=== PATIENT | female | born 1980 | race Caucasian/White ===

== ENCOUNTER 2018-08-14 10:24 | Outpatient (CLI) | payer BC ==
[2018-08-14 18:00] LABS: BASOPHILS % (AUTO) 0.6 %; EOSINOPHILS # (AUTO) 0.2 10^3/uL (0.0-0.7); EOSINOPHILS % (AUTO) 4.4 %; HGB - HEMOGLOBIN 13.2 g/dL (12.0-16.0); LYMPHOCYTES # (AUTO) 1.3 10^3/uL (1.5-3.5); LYMPHOCYTES % (AUTO) 24.2 %; MEAN CORPUSCULAR HEMOGLOBIN 28.9 pg (27.0-31.0); MEAN CORPUSCULAR HGB CONC 33.4 g/dL (32.0-36.0); MEAN CORPUSCULAR VOLUME 86.4 fL (81.0-99.0); MEAN PLATELET VOLUME 9.5 fL (7.9-10.8); MONOCYTES # (AUTO) 0.4 10^3/uL (0.0-1.0); MONOCYTES % (AUTO) 7.4 %; NEUTROPHILS # (AUTO) 3.3 10^3/uL (1.5-6.6); NEUTROPHILS % (AUTO) 63.4 %; PLT - PLATELET COUNT 279 10^3/uL (130-450); RED BLOOD COUNT 4.59 10^6/uL (4.20-5.40); RED CELL DISTRIBUTION WIDTH 13.4 % (12.0-15.0); WHITE BLOOD COUNT 5.2 x10^3/uL (4.8-10.8)
[2018-08-14 18:28] LABS: ALBUMIN 4.3 g/dL (3.2-5.5); ALBUMIN/GLOBULIN RATIO 1.4 (1.0-2.2); BILIRUBIN,TOTAL 0.6 mg/dL (0.2-1.0); CALCIUM 9.1 mg/dL (8.5-10.3); CREATININE 0.6 mg/dL (0.4-1.0); TOTAL PROTEIN 7.3 g/dL (6.7-8.2)
[2018-08-14 18:42] LABS: T4 (THYROXINE) 7.39 ug/dL (6.09-12.23)
[2018-08-14 18:45] LABS: THYROID STIMULATING HORMONE 0.17 uIU/mL (0.34-5.60)
[2018-08-14 18:48] LABS: FREE T4 (FREE THYROXINE) 1.15 ng/dL (0.58-1.64)
[2018-08-14 18:51] LABS: FERRITIN 9.3 ng/mL (11.0-306.8)
== END 2018-08-14 10:25 | disposition home or self-care (01) ==
LOC: LAB.F 10:24
PROVIDERS: ATTEND Nurse Practitioner Family
DX: Z00.00 Encounter for general adult medical examination without abnormal findings (principal); E55.9 Vitamin D deficiency, unspecified; E03.2 Hypothyroidism due to medicaments and other exogenous substances; E78.5 Hyperlipidemia, unspecified
CPT/HCPCS: 36415; 80053; 82306; 82728; 84436; 84439; 84443; 84481; 85025; 86376; 86800

== ENCOUNTER 2020-02-11 15:00 | Outpatient (CLI) | payer BC ==
[2020-02-11 17:26] LABS: MUDS CUTOFF CONCENTRATIONS CUTOFF CONC BELOW:
[2020-02-11 17:35] LABS: BILIRUBIN,URINE NEGATIVE (NEGATIVE); GLUCOSE, URINE (UA) NEGATIVE (NEGATIVE); KETONES,URINE (UA) NEGATIVE (NEGATIVE); LEUKOCYTE ESTERASE, URINE TRACE (NEGATIVE); NITRITE,URINE NEGATIVE (NEGATIVE); OCCULT BLOOD,URINE NEGATIVE (NEGATIVE); PH,URINE 7.5 PH (5.0-7.5); PROTEIN,URINE NEGATIVE (NEGATIVE); UROBILINOGEN,URINE 0.2 (NORMAL) E.U./dL (NORMAL)
[2020-02-11 17:46] LABS: CLARITY,URINE CLEAR (CLEAR)
[2020-02-11 17:48] LABS: AMPHETAMINE SCREEN,URINE NEGATIVE (NEGATIVE); BENZODIAZEPINES SCREEN, URINE NEGATIVE (NEGATIVE); COCAINE SCREEN URINE NEGATIVE (NEGATIVE); METHADONE SCREEN, URINE NEGATIVE (NEGATIVE); METHAMPHETAMINES SCREEN, URINE NEGATIVE (NEGATIVE); OPIATE SCREEN, URINE NEGATIVE (NEGATIVE); OXYCODONE SCREEN, URINE NEGATIVE (NEGATIVE); PROPOXYPHENE SCREEN, URINE NEGATIVE (NEGATIVE); TRICYCLIC ANTIDEPRESSANT,URINE NEGATIVE (NEGATIVE)
[2020-02-11 17:53] LABS: BACTERIA,URINE Many /HPF (None Seen); RBC,URINE 0-5 /HPF (0-5); SQUAMOUS EPITHELIAL CELL,UR FEW Squamous (<= Few)
== END 2020-02-11 23:59 | disposition home or self-care (01) ==
LOC: LAB.R 15:00
PROVIDERS: ATTEND Nurse Practitioner Obstetrics & Gynecology
DX: Z32.01 Encounter for pregnancy test, result positive (principal)
CPT/HCPCS: 80306; 81001; 87086

== ENCOUNTER 2020-02-20 14:43 | Outpatient (CLI) | payer BC ==
--- NOTE | 2020-02-20 16:04 | Ultrasound Report ---
PROCEDURE: OB First Trimester INDICATIONS: TEST POSITIVE, HX OF OUTSIDE/PRIOR DATING DATA: Last menstrual period (LMP): Not known. LMP-based estimated date of delivery (DEBRA): Not known. First dating scan (date and location): 02/20/2020. Estimated date of delivery (DEBRA) from first dating scan: 10/14/2020. TECHNIQUE: Real-time scanning was performed of the fetus and maternal pelvic organs, with image documentation. COMPARISON: None available from this FINDINGS: Embryo: There is an intrauterine gestational sac seen, with a pole present, which measures 0.5 cm, which corresponds to an estimated gestational age of 6 weeks 1 day. cardiac activity is se en, with a measured heart rate of 124 bpm. Mild perigestational/subchorionic hemorrhage can be seen superior to the gestational sac measuring 7 x 8 x 11 mm, with an additional area of subchorionic hem orrhage seen inferior to the gestational sac measuring 19 x 9 x 23 mm. Measurement variability in dating: +/- 4 weeks by LMP, +/- 7 days by mean sac diameter (use before 6 weeks gestation if crown-rump length not able to be measured), +/- 5 days by crown-rump length (6-12 weeks gestation). Maternal organs: Ovaries are unremarkable, with a presumed left ovarian corpus luteum seen. A small er free fluid can be seen within the right adnexal region. Limited images through the kidneys demonst rate no hydronephrosis. IMPRESSION: Single live intrauterine . The estimated gestational age is 6 weeks 1 day, which corresponds to an ultrasound estimated date of delivery of 10/14/2020. 2 areas of subchorionic hemorrhage are seen. Close clinical follow-up with serial beta hCG measuremen ts are recommended, as clinically appropriate. Presumed left ovarian corpus luteum seen. Reviewed by: Chan Reeves MD on 02/20/2020 3:02 PM MARIANO Approved by: Chan Reeves MD on 02/20/2020 3:02 PM MARIANO Station ID: [id number]
== END 2020-02-20 14:44 | disposition home or self-care (01) ==
LOC: DI 14:43
PROVIDERS: ATTEND Nurse Practitioner Obstetrics & Gynecology
DX: O46.8X1 Other antepartum hemorrhage, first trimester (principal); Z3A.01 Less than 8 weeks gestation of pregnancy
CPT/HCPCS: 76801

== ENCOUNTER 2020-02-22 09:53 | Outpatient (CLI) | payer BC ==
[2020-02-22 10:04] LABS: BASOPHILS % (AUTO) 0.3 %; EOSINOPHILS # (AUTO) 0.1 10^3/uL (0.0-0.7); EOSINOPHILS % (AUTO) 2.3 %; HGB - HEMOGLOBIN 13.4 g/dL (12.0-16.0); LYMPHOCYTES # (AUTO) 1.2 10^3/uL (1.5-3.5); LYMPHOCYTES % (AUTO) 19.7 %; MEAN CORPUSCULAR HEMOGLOBIN 29.6 pg (27.0-31.0); MEAN CORPUSCULAR HGB CONC 34.4 g/dL (32.0-36.0); MEAN CORPUSCULAR VOLUME 86.1 fL (81.0-99.0); MEAN PLATELET VOLUME 10.2 fL (7.9-10.8); MONOCYTES # (AUTO) 0.3 10^3/uL (0.0-1.0); MONOCYTES % (AUTO) 5.5 %; NEUTROPHILS # (AUTO) 4.5 10^3/uL (1.5-6.6); NEUTROPHILS % (AUTO) 71.7 %; PLT - PLATELET COUNT 258 10^3/uL (130-450); RED BLOOD COUNT 4.52 10^6/uL (4.20-5.40); RED CELL DISTRIBUTION WIDTH 12.4 % (12.0-15.0); WHITE BLOOD COUNT 6.2 x10^3/uL (4.8-10.8)
[2020-02-22 22:09] LABS: TRICHOMONAS VAGINALIS DNA NEGATIVE (NEGATIVE)
[2020-02-23 12:16] LABS: HIV AG/AB 4TH GEN NON-REACTIVE (NON-REACTIVE)
[2020-02-23 12:45] LABS: HEPATITIS C ANTIBODY NON-REACTIVE (NON-REACTIVE)
[2020-02-23 12:46] LABS: HEPATITIS B SURFACE ANTIGEN NON-REACTIVE (NON-REACTIVE)
== END 2020-02-22 09:54 | disposition home or self-care (01) ==
LOC: LAB 09:53
PROVIDERS: ATTEND Obstetrics & Gynecology
DX: Z36.89 Encounter for other specified antenatal screening (principal); O99.280 Endocrine, nutritional and metabolic diseases complicating pregnancy, unspecified trimester; E03.9 Hypothyroidism, unspecified; Z3A.00 Weeks of gestation of pregnancy not specified
CPT/HCPCS: 36415; 81599; 84443; 85025; 86592; 86762; 86787; 86803; 86850; 86900; 86901; 87340; 87389; 87491; 87591; 87661

== ENCOUNTER 2020-05-13 14:31 | Outpatient (CLI) | payer BC ==
[2020-05-13 19:40] LABS: FREE T4 (FREE THYROXINE) 0.87 ng/dL (0.58-1.64)
--- OUTSIDE RECORDS SUMMARY | 2020-05-17 01:52 | EXTERNAL MEDICAL SUMMARY RPT | Continuity of Care Document ---
:1980 Demographics Phone Unavailable Preferred Language Taiwanese Marital Status Unknown Sabianist Affiliation Unknown Race Unknown Ethnic Group Unknown Author Organization [place] Address [address] [phone] Phone Care Team Providers Name Role Phone Nurse Unavailable Unavailable Referrals Unavailable Unavailable DO Unavailable Unavailable Navarro Unavailable Unavailable Unavailable Unavailable Problems date description facility 2018-08-14 10:24 HYPOTHYROIDISM DUE TO MEDS AND [facility] OTH EXOGENOUS SUBSTANCES 2018-08-14 10:24 VITAMIN D DEFICIENCY, [facility] UNSPECIFIED 2018-08-14 10:24 HYPERLIPIDEMIA, UNSPECIFIED [facility] 2018-08-14 10:24 ENCNTR FOR GENERAL ADULT [facility] MEDICAL EXAM W/O ABNORMAL FINDINGS 2020-02-11 00:00 ENCOUNTER FOR TEST, [facility] RESULT POSITIVE 2020-02-11 15:00 ENCOUNTER FOR TEST, [facility] RESULT POSITIVE 2020-02-20 14:43 OTHER ANTEPARTUM HEMORRHAGE, [facility] FIRST TRIMESTER 2020-02-20 14:43 ENCOUNTER FOR TEST, [facility] RESULT POSITIVE 2020-02-20 14:43 LESS THAN 8 WEEKS GESTATION OF [facility] 2020-02-20 14:43 PERSONAL HISTORY OF COMP OF [facility] PREG, CHLDBRTH AND THE PUERP 2020-02-20 14:45 ENCOUNTER FOR TEST, [facility] RESULT POSITIVE 2020-02-20 14:45 PERSONAL HISTORY OF COMP OF [facility] PREG, CHLDBRTH AND THE PUERP 2020-02-22 00:00:00 TSH WITH REFLEX [facility] FT4 [facility] RHC 2020-02-22 00:00:00 Elderly multigravida, with [facility] C[facility] current , delivered, RHC with or without mention of antepartum condition 2020-02-22 00:00:00 [facility], unspecified R[facility] trimester 2020-02-22 00:00:00 Encounter for other specified [facility] screening RHC 2020-02-22 00:00:00 Personal history of malignant [facility] neoplasm of thyroid RHC 2020-02-22 00:00:00 [facility] 2020-02-22 00:00:00 [facility] 2020-02-22 00:00:00 Tobacco smoking status [facility] 2020-02-22 00:00:00 CHLAM, NEISSERIA, TRICH DNA [facility] 2020-02-22 00:00:00 Screening examination for [facility] venereal disease RHC 2020-02-22 00:00:00 [facility] 2020-02-22 00:00:00 screening [facility] CPV RHC 2020-02-22 00:00:00 [facility]ravida of advanced [facility] maternal age RHC 2020-02-22 00:00:00 [facility] 2020-02-22 00:00:00 Encounter for other specified [facility] screening of mother RHC 2020-02-22 00:00:00 Encounter for screening for [facility] infections with a predominantly RHC sexual mode of transmission 2020-02-22 00:00:00 Encounter for supervision of [facility] other normal , RHC unspecified trimester 2020-02-22 00:00:00 [facility] 2020-02-22 00:00:00 Alcohol use [facility] C[facility] RHC 2020-02-22 00:00:00 [facility] 2020-02-22 00:00:00 Supervision of other normal [facility] RHC 2020-02-22 00:00:00 PROFILE [facility] n[facility] CPV RHC 2020-02-22 00:00:00 Varicella Zoster Virus (VZV) [facility] CPV Antibody, IgG RHC 2020-02-22 00:00:[address] [facility] CPV RHC 2020-02-22 00:00:00 Venereal disease screening [facility] CPV RHC 2020-02-22 00:00:00 Exercise [facility] CPV RHC 2020-02-22 00:00:00 History of malignant neoplasm [facility] CPV of thyroid RH 2020-02-22 09:53 HYPOTHYROIDISM, UNSPECIFIED [facility] 2020-02-22 09:53 ENDO, NUTRITIONAL AND METAB [facility] DISEASES COMP PREG, UNSP TRI 2020-02-22 09:53 ENCOUNTER FOR OTHER SPECIFIED [facility] SCREENING 2020-02-22 09:53 WEEKS OF GESTATION OF [facility] NOT SPECIFIED 2020-03-21 00:00:00 Health-related behavior [facility] 2020-03-21 00:00:00 Tobacco use and exposure [facility] CPV RHC 2020-03-21 00:00:00 Exercise [facility] CPV RHC 2020-03-21 00:00:00 Alcohol use [facility] CPV RHC 2020-03-21 00:00:00 [facility] 2020-03-21 00:00:00 Tobacco smoking status NHIS [facility] 2020-03-21 00:00:00 Total score? [facility] 2020-04-20 00:00:00 TSH w/reflex [facility] RHC 2020-04-20 00:00:00 MSAFP [facility] RHC 2020-04-20 00:00:00 Tobacco [facility] exposure [facility] 2020-04-20 00:00:00 Health-related behavior [facility] 2020-04-20 00:00:00 Exercise [facility] 2020-04-20 00:00:00 Never smoker [facility] 2020-04-20 00:00:00 Alcohol use [facility] 2020-04-20 00:00:00 Tobacco smoking status CAIS [facility] 2020-04-20 00:00:00 Total score? [facility] 2020-05-13 14:31 HYPOTHYROIDISM, UNSPECIFIED [facility] 2020-05-13 14:31 [facility] M[facility]IDA, UNSPECIFIED TRIMESTER 2020-05-16 00:00:00 TSH WITH REFLEX TO FT4 [facility] RHC Procedures date description facility 2020-02-22 00:00:00 TSH WITH REFLEX TO FT4 [facility] RHC date description facility 2020-02-22 00:00:00 Hep C AB with Reflex [facility] RHC date description facility 2020-02-22 00:00:00 CHLAM, NEISSERIA, TRICH DNA [facility] R[facility] date description facility 2020-02-22 00:00:00 [id number] - SUBSEQUENT [facility] VISIT RHC date description facility 2020-02-22 00:00:[facility] date description facility 2020-02-22 00:00:00 Var[facility]ella [facility]V) [facility] Antibody, IgG RHC date description facility 2020-02-22 00:00:00 [facility] date description facility 2020-02-22 00:00:00 [id number] [facility] R[facility] date description facility 2020-02-22 00:00:[facility] date description facility 2020-02-22 00:00:00 [facility] FT4 [facility] date description facility 2020-02-22 00:00:00 Hep [facility] date description facility 2020-02-22 00:00:00 CHLAM, NEISSERIA, TRICH DNA [facility] R[facility] date description facility 2020-02-22 00:00:00 [id number] - SUBSEQUENT [facility] VISIT RHC date description facility 2020-02-22 00:00:[facility] date description facility 2020-02-22 00:00:00 Varicella Zoster Virus (VZV) [facility] Antibody, IgG RHC date description facility 2020-02-22 00:00:00 [facility] date description facility 2020-02-22 00:00:00 [id number] [facility] date description facility 2020-02-22 00:00[facility] date description facility 2020-02-22 00:00:00 [facility] date description facility 2020-02-22 00:00:00 Hep C AB with Reflex [facility] date description facility 2020-02-22 00:00:00 CHLAM, NEISSERIA, TRICH DNA [facility] date description facility 2020-02-22 00:00:00 [id number] - SUBSEQUENT [facility] VISIT RHC date description facility 2020-02-22 00:00:00 [facility]FILE [facility] date description facility 2020-02-22 00:00:00 Varicella Zoster [facility] ([facility]V) [facility] Antibody, IgG RHC date description facility 2020-02-22 00:00:00 HIV 4TH GEN [facility] R[facility] date description facility 2020-02-22 00:00:00 [id number] [facility] (Global) RHC date description facility 2020-02-22 00:00[facility] date description facility 2020-02-22 00:00:00 TSH WITH REFLEX TO FT4 [facility] RHC date description facility 2020-02-22 00:00:00 Hep C AB with Reflex [facility] R[facility] date description facility 2020-02-22 00:00:00 CHLAM, NEISSERIA, TRICH DNA [facility] date description facility 2020-02-22 00:00:00 [id number] - SUBSEQUENT [facility] VISIT RHC date description facility 2020-02-22 00:00:00 [facility] date description facility 2020-02-22 00:00:00 Varicella Zoster [facility] ([facility]V) [facility] Antibody, IgG RHC date description facility 2020-02-22 00:00:00 HIV 4TH GEN [facility] date description facility 2020-02-22 00:00:00 [id number] [facility] (Global[facility] RHC date description facility 2020-02-22 00:00:00 [facility] date description facility 2020-03-21 00:00:00 [id number] - SUBSEQUENT [facility] VIS[facility] RHC date description facility 2020-03-21 00:00:00 [facility] date description facility 2020-03-21 00:00:00 [id number] - SUBSEQUENT [facility] VISIT RHC date description facility 2020-03-21 00:00:00 [facility] date description facility 2020-04-20 00:00:00 [id number] - SUBSEQUENT [facility] VISIT RHC date description facility 2020-04-20 00:00:00 [facility] date description facility 2020-04-20 00:00:00 TSH w/reflex [facility] R[facility] date description facility 2020-04-20 00:00:00 [id number] - SUBSEQUENT [facility] VISIT RHC date description facility 2020-04-20 00:00:00 MSAFP [facility] RHC date description facility 2020-04-20 00:00:00 [facility] Results Social History date description facility 2020-02-22 00:00:00 Never smoker [facility] RHC date description facility 2020-03-21 00:00:00 Never smoker [facility] R[facility] date description facility 2020-04-20 00:00:00 Never smoker [facility] R[facility] Social History date description facility 2020-02-22 00:00:00 Never smoker [facility] RHC date description facility 2020-03-21 00:00:00 Never smoker [facility] R[facility] date description facility 2020-04-20 00:00:00 Never smoker [facility] CPV RHC date description facility [id number]
== END 2020-05-13 14:32 | disposition home or self-care (01) ==
LOC: LAB.S 14:31
PROVIDERS: ATTEND Obstetrics & Gynecology
DX: O09.529 Supervision of elderly multigravida, unspecified trimester (principal); O99.280 Endocrine, nutritional and metabolic diseases complicating pregnancy, unspecified trimester; E03.9 Hypothyroidism, unspecified
CPT/HCPCS: 36415; 81599; 82105; 84439; 84443

== ENCOUNTER 2020-05-18 12:17 | Outpatient (CLI) | payer BC ==
[2020-05-18 13:11] LABS: THYROID STIMULATING HORMONE 9.26 uIU/mL (0.34-5.60)
[2020-05-18 13:13] LABS: FREE T4 (FREE THYROXINE) 0.88 ng/dL (0.58-1.64)
== END 2020-05-18 12:18 | disposition home or self-care (01) ==
LOC: LAB 12:17
PROVIDERS: ATTEND Obstetrics & Gynecology
DX: E03.9 Hypothyroidism, unspecified (principal)
CPT/HCPCS: 36415; 84439; 84443

== ENCOUNTER 2020-05-26 09:44 | Outpatient (CLI) | payer BC ==
[2020-05-26 15:32] LABS: THYROID STIMULATING HORMONE 3.12 uIU/mL (0.34-5.60)
[2020-05-26 15:36] LABS: FREE T4 (FREE THYROXINE) 1.05 ng/dL (0.58-1.64)
== END 2020-05-26 09:45 | disposition home or self-care (01) ==
LOC: LAB.S 09:44
PROVIDERS: ATTEND Obstetrics & Gynecology
DX: O09.529 Supervision of elderly multigravida, unspecified trimester (principal); O99.280 Endocrine, nutritional and metabolic diseases complicating pregnancy, unspecified trimester; E03.9 Hypothyroidism, unspecified
CPT/HCPCS: 36415; 84439; 84443

== ENCOUNTER 2020-05-27 07:20 | Outpatient (CLI) | payer BC ==
--- NOTE | 2020-05-27 19:02 | Ultrasound Report ---
PROCEDURE: OB Detailed Eval INDICATIONS: SUPERVISION OF ELDERLY MULTIGRAVIDA OUTSIDE/PRIOR DATING DATA: Last menstrual period (LMP): Anterior. First dating scan (date and location): 02/20/2020. Estimated date of delivery (DEBRA) from first dating scan: 10/14/2020. TECHNIQUE: Real-time scanning was performed of the fetus, with image documentation and biometric measurements. Endovaginal scanning: COMPARISON: None. FINDINGS: General: A single living intrauterine gestation is present. Presentation: Variable Placenta: Placental position is anterior, without previa. Placental mason is noted measuring up to 2. 0 cm. Cervix to placenta distance measures 2.9 cm. Amniotic fluid index: 16.5 cm, normal for gestational age. heart rate: 141 beats per minute. Maternal cervical canal: 5.95 cm long; normal length is 2.5 cm or more. biometrics: Biparietal diameter: 4.8 cm corresponding to 20 weeks 5 days and 79.7% Head circumference: 18.33 cm corresponding to 20 weeks 5 days and 74.2% Abdominal circumference: 15.6 cm corresponding to 21 weeks 0 days and 76.2% Femur length: 3.34 cm corresponding to 20 weeks 3 days and 59.3% Estimated gestational age from initial scan: 20 weeks 4 days Composite gestational age from present scan: 20 weeks 3 days Estimated weight and percentile: 374 g +/-55 g 84.9% Measurement variability in biometric dating: +/- 10 days from 12-20 weeks gestation, +/- 2 weeks from 20-30 weeks gestation, +/- 3 weeks at 30 weeks gestation or later. Anatomic survey: Neuro: Ventricles are normal at less than 10 mm. Cisterna magna is normal at 3-11 mm. Cerebellum i s normal in size and morphology. Face: Nose and lips, facial profile are normal. Spine: No evidence for spina bifida. Heart: 4-chambered heart is present, with normal ventricular outflow tracts. Diaphragm: Diaphragm is intact. Stomach: Left-sided stomach is present. Kidneys: No hydronephrosis. Normal is less than 5 mm in 2nd trimester, less than 7 mm in 3rd trimester. Cord: 3 vessel cord has orthotopic insertion. Bladder: Normal in size. Extremities: All 4 extremities are visualized. IMPRESSION: Single live intrauterine in variable position with heart rate of 141 bpm with estimat ed gestational age on today's ultrasound of 20 weeks 3 days which is concordant with estimated gestat ional age by dating ultrasound of 20 weeks 4 days. No evidence of an anatomic abnormality. Estimated weight of 374 g +/-55 g corresponding to 84.9 percentile Reviewed by: Darrell Walker DO on 05/27/2020 6:01 PM ANDRY Approved by: Darrell Walker DO on 05/27/2020 6:01 PM [facility] Station ID: [id number]
== END 2020-05-27 07:21 | disposition home or self-care (01) ==
LOC: DI 07:20
PROVIDERS: ATTEND Obstetrics & Gynecology
DX: O09.529 Supervision of elderly multigravida, unspecified trimester (principal)

== ENCOUNTER 2020-06-12 15:10 | Outpatient (CLI) | payer BC ==
[2020-06-12 20:32] LABS: THYROID STIMULATING HORMONE 0.45 uIU/mL (0.34-5.60)
[2020-06-12 20:36] LABS: FREE T4 (FREE THYROXINE) 1.15 ng/dL (0.58-1.64)
== END 2020-06-12 15:11 | disposition home or self-care (01) ==
LOC: LAB.S 15:10
PROVIDERS: ATTEND Obstetrics & Gynecology
DX: E03.9 Hypothyroidism, unspecified (principal)
CPT/HCPCS: 36415; 84439; 84443

== ENCOUNTER 2020-07-08 13:28 | Outpatient (CLI) | payer BC ==
[2020-07-08 15:38] LABS: THYROID STIMULATING HORMONE 0.11 uIU/mL (0.34-5.60)
[2020-07-08 15:40] LABS: FREE T4 (FREE THYROXINE) 1.17 ng/dL (0.58-1.64)
== END 2020-07-08 13:29 | disposition home or self-care (01) ==
LOC: LAB.S 13:28
PROVIDERS: ATTEND Internal Medicine
DX: E89.0 Postprocedural hypothyroidism (principal); Z85.850 Personal history of malignant neoplasm of thyroid
CPT/HCPCS: 36415; 84439; 84443

== ENCOUNTER 2020-07-26 09:46 | Outpatient (CLI) | payer BC ==
[2020-07-26 14:28] LABS: HCT - HEMATOCRIT 31.2 % (37.0-47.0); HGB - HEMOGLOBIN 10.4 g/dL (12.0-16.0); MEAN CORPUSCULAR HEMOGLOBIN 29.3 pg (27.0-31.0); MEAN CORPUSCULAR HGB CONC 33.3 g/dL (32.0-36.0); MEAN CORPUSCULAR VOLUME 87.9 fL (81.0-99.0); MEAN PLATELET VOLUME 10.9 fL (7.9-10.8); RED BLOOD COUNT 3.55 10^6/uL (4.20-5.40); RED CELL DISTRIBUTION WIDTH 12.8 % (12.0-15.0); WHITE BLOOD COUNT 6.6 x10^3/uL (4.8-10.8)
== END 2020-07-26 09:47 | disposition home or self-care (01) ==
LOC: LAB.S 09:46
PROVIDERS: ATTEND Obstetrics & Gynecology
DX: O09.529 Supervision of elderly multigravida, unspecified trimester (principal); Z36.89 Encounter for other specified antenatal screening
CPT/HCPCS: 36415; 82950; 85027

== ENCOUNTER 2020-08-01 10:47 | Outpatient (CLI) | payer BC ==
[2020-08-01 11:41] LABS: GTT GLUCOSE,FASTING 86 mg/dL (70-100)
[2020-08-01 13:12] LABS: THYROID STIMULATING HORMONE 0.14 uIU/mL (0.34-5.60)
[2020-08-01 13:14] LABS: FREE T4 (FREE THYROXINE) 0.8 ng/dL (0.58-1.64)
== END 2020-08-01 10:48 | disposition home or self-care (01) ==
LOC: LAB 10:47
PROVIDERS: ATTEND Obstetrics & Gynecology
DX: O99.810 Abnormal glucose complicating pregnancy (principal); O99.280 Endocrine, nutritional and metabolic diseases complicating pregnancy, unspecified trimester; O09.529 Supervision of elderly multigravida, unspecified trimester; E03.9 Hypothyroidism, unspecified; Z13.21 Encounter for screening for nutritional disorder
CPT/HCPCS: 36415; 82306; 82951; 82952; 84439; 84443

== ENCOUNTER 2020-08-19 14:15 | Outpatient (CLI) | payer BC ==
[2020-08-19 17:51] LABS: HCT - HEMATOCRIT 32.2 % (37.0-47.0); HGB - HEMOGLOBIN 10.9 g/dL (12.0-16.0); MEAN CORPUSCULAR HEMOGLOBIN 29.1 pg (27.0-31.0); MEAN CORPUSCULAR HGB CONC 33.9 g/dL (32.0-36.0); MEAN CORPUSCULAR VOLUME 85.9 fL (81.0-99.0); RED BLOOD COUNT 3.75 10^6/uL (4.20-5.40); RED CELL DISTRIBUTION WIDTH 13.3 % (12.0-15.0); WHITE BLOOD COUNT 7.7 x10^3/uL (4.8-10.8)
[2020-08-19 18:35] LABS: T4 (THYROXINE) 9.5 ug/dL (6.09-12.23)
[2020-08-19 18:39] LABS: THYROID STIMULATING HORMONE 0.21 uIU/mL (0.34-5.60)
== END 2020-08-19 14:16 | disposition home or self-care (01) ==
LOC: LAB.S 14:15
PROVIDERS: ATTEND Internal Medicine
DX: O99.280 Endocrine, nutritional and metabolic diseases complicating pregnancy, unspecified trimester (principal); E55.9 Vitamin D deficiency, unspecified; O99.019 Anemia complicating pregnancy, unspecified trimester; Z85.850 Personal history of malignant neoplasm of thyroid; E89.0 Postprocedural hypothyroidism
CPT/HCPCS: 36415; 82306; 84436; 84439; 84443; 85027

== ENCOUNTER 2020-09-05 08:54 | Outpatient (CLI) | payer BC ==
[2020-09-05] MEDS ORDERED: FERRIC GLUCONATE 125 MG in SODIUM CHLORIDE 0.9% 100ML 100 ML IV ONE (09:30)
--- NOTE | 2020-09-05 09:51 | PROVIDER PROGRESS NOTE ---
- HPI Current : Vital Signs Temperature 98.6 F 09/05/20 09:14 Heart Rate 90 09/05/20 09:14 Respiratory Rate 16 09/05/20 09:14 Blood Pressure 100/52 L 09/05/20 09:14 Temperature 98.6 F 09/05/20 09:14 Heart Rate 90 09/05/20 09:14 Respiratory Rate 16 09/05/20 09:14 Blood Pressure 100/52 L 09/05/20 09:14 O2 Saturation - Plan Plan: Here for scheduled IV Fe infusion. Indication = chronic iron deficiency anemia
[2020-09-05 10:51] VITALS: BP 116/62
== END 2020-09-05 11:05 | disposition home or self-care (01) ==
LOC: WFO 08:54 → FBP 08:56 → WFO 11:05
PROVIDERS: ATTEND Obstetrics & Gynecology
DX: O99.019 Anemia complicating pregnancy, unspecified trimester (principal); D50.9 Iron deficiency anemia, unspecified; Z3A.00 Weeks of gestation of pregnancy not specified
CPT/HCPCS: 36415; 85014; 96365; J2916; 99213

== ENCOUNTER 2020-09-18 08:00 | Outpatient (CLI) | payer BC | END 2020-09-18 23:59 | disposition home or self-care (01) | LOC: LAB.R 08:00 | PROVIDERS: ATTEND Obstetrics & Gynecology | DX: Z36.85 Encounter for antenatal screening for Streptococcus B (principal); O99.019 Anemia complicating pregnancy, unspecified trimester; O99.280 Endocrine, nutritional and metabolic diseases complicating pregnancy, unspecified trimester; E55.9 Vitamin D deficiency, unspecified; O09.529 Supervision of elderly multigravida, unspecified trimester; Z36.89 Encounter for other specified antenatal screening; Z85.850 Personal history of malignant neoplasm of thyroid | CPT/HCPCS: 36415; 82306; 82728; 83540; 84466; 85027; 87797 ==

== ENCOUNTER 2020-09-18 13:17 | Outpatient (CLI) | payer BC ==
[2020-09-18 20:28] LABS: HCT - HEMATOCRIT 34.6 % (37.0-47.0); HGB - HEMOGLOBIN 11.4 g/dL (12.0-16.0); MEAN CORPUSCULAR HEMOGLOBIN 28.8 pg (27.0-31.0); MEAN CORPUSCULAR HGB CONC 32.9 g/dL (32.0-36.0); MEAN CORPUSCULAR VOLUME 87.4 fL (81.0-99.0); MEAN PLATELET VOLUME 11.1 fL (7.9-10.8); RED BLOOD COUNT 3.96 10^6/uL (4.20-5.40); WHITE BLOOD COUNT 6.3 x10^3/uL (4.8-10.8)
[2020-09-18 21:11] LABS: % IRON SATURATION 12 % (20-50); IRON 76 ug/dL (28-170); TOTAL IRON BINDING CAPACITY 609 ug/dL (250-450); TRANSFERRIN 435 mg/dL (192-382)
== END 2020-09-18 13:18 | disposition home or self-care (01) ==
LOC: LAB.S 13:17
PROVIDERS: ATTEND Obstetrics & Gynecology
DX: O99.019 Anemia complicating pregnancy, unspecified trimester (principal); O99.280 Endocrine, nutritional and metabolic diseases complicating pregnancy, unspecified trimester; E55.9 Vitamin D deficiency, unspecified; O09.529 Supervision of elderly multigravida, unspecified trimester; Z36.89 Encounter for other specified antenatal screening; Z85.850 Personal history of malignant neoplasm of thyroid
CPT/HCPCS: 36415; 82306; 82728; 83540; 84466; 85027

== ENCOUNTER 2020-10-09 18:13 | Inpatient (IN) | payer BC ==
[2020-10-09] MEDS ORDERED: fentaNYL 100 MCG/2 ML VIAL IVP PRN (19:10)
[2020-10-09] MEDS ORDERED: OXYTOCIN 10 UNIT/ML VIAL IM PRN (19:10)
[2020-10-09] MEDS ORDERED: METOCLOPRAMIDE 10 MG/2 ML VIAL IVP PRN (19:10)
[2020-10-09] MEDS ORDERED: LIDOCAINE-MPF 1% 30 ML VIAL ID PRN (19:10)
[2020-10-09] MEDS ORDERED: SODIUM CHLORIDE FLUSH 0.9% 10 ML SYRINGE IVP PRN (19:10)
[2020-10-09] MEDS ORDERED: CARBOPROST TROMETHAMINE 250 MCG/ML AMP IM PRN (19:10)
[2020-10-09] MEDS ORDERED: NIFEdipine 10 MG CAPSULE PO PRN (19:10)
[2020-10-09] MEDS ORDERED: METHYLERGONOVINE 0.2 MG/ML VIAL IM PRN (19:10)
[2020-10-09] MEDS ORDERED: miSOPROStoL 200 MCG TABLET BC PRN (19:10)
[2020-10-09] MEDS ORDERED: TRANEXAMIC ACID IN NACL 1,000 MG/100 ML BAG IV PRN (19:10)
[2020-10-09] MEDS ORDERED: hydrALAZINE INJ 20 MG/ML VIAL IVP PRN ×2 (19:10)
[2020-10-09] MEDS ORDERED: LABETALOL 20 MG/4 ML SYRINGE IVP PRN ×3 (19:10)
[2020-10-09] MEDS ORDERED: METOCLOPRAMIDE 10 MG TABLET PO PRN (19:14)
[2020-10-09] MEDS ORDERED: ACETAMINOPHEN 325 MG TABLET PO PRN (19:14)
[2020-10-09] MEDS ORDERED: ONDANSETRON ODT 4 MG TABLET TL PRN (19:14)
[2020-10-09] MEDS ORDERED: ONDANSETRON 4 MG/2 ML VIAL IVP PRN (19:14)
[2020-10-09 19:20] LABS: BASOPHILS % (AUTO) 0.2 %; EOSINOPHILS # (AUTO) 0.1 10^3/uL (0.0-0.7); EOSINOPHILS % (AUTO) 0.9 %; HCT - HEMATOCRIT 34.6 % (37.0-47.0); LYMPHOCYTES # (AUTO) 1.1 10^3/uL (1.5-3.5); LYMPHOCYTES % (AUTO) 12.9 %; MEAN CORPUSCULAR HEMOGLOBIN 29.2 pg (27.0-31.0); MEAN CORPUSCULAR HGB CONC 34.7 g/dL (32.0-36.0); MEAN CORPUSCULAR VOLUME 84.2 fL (81.0-99.0); MEAN PLATELET VOLUME 10.6 fL (7.9-10.8); MONOCYTES # (AUTO) 0.6 10^3/uL (0.0-1.0); MONOCYTES % (AUTO) 7.3 %; NEUTROPHILS # (AUTO) 6.3 10^3/uL (1.5-6.6); NEUTROPHILS % (AUTO) 77.2 %; PLT - PLATELET COUNT 218 10^3/uL (130-450); RED BLOOD COUNT 4.11 10^6/uL (4.20-5.40); RED CELL DISTRIBUTION WIDTH 13.9 % (12.0-15.0); WHITE BLOOD COUNT 8.1 x10^3/uL (4.8-10.8)
--- NOTE | 2020-10-09 19:29 | HISTORY & PHYSICAL EXAMINATION ---
Admit History - Visit Reason Visit Reason: Other (Induction of labor with cervical ripening) - Smoking Status: Former smoker - Other Maternal History Other Maternal History: Patient is a 40 yo at 39+2 wga here for induction of labor for AMA. Seen in clinic today. SVE was 260/-2. complicated by hx of thyroid cancer on levothyroxine. Anemia s/p iron infusion with most recent HCT 34.6. 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 Endorses FM. Small amount of VB after membrane stripping. No LOF. Reviewed process and signed consents in clinic today. Hx of retained placenta with PPH after last delivery; was not transfused. Placenta in opposite location. Care: DATING: LMP unknown US on 02/20/2020 at 6w1d gives DEBRA 10/15/19. Thyroid CA: History of thyroid cancer, status post thyroidectomy, on levothyroxine - see prior notes about period of instability Now well controlled [facility] adjusted levothyroxine to 275 mcg QOD alternating with 137 QOD. NO change since last visit ENDO states no further fu necessary No change in meds Vit D Deficiency: Last level 14. On supplementation. She is unclear on dose as pharmacy would not fill RX Reviewed drop to 12 on fu labs Reviewed RBA of higher level dosing. Patient agrees with higher dose and Rx submitted Repeat levels 26 Anemia: HCT 31 at 28 weeks Unchanges on repeat check after oral supplementation Iron infusion completed two weeks ago FU CBC 34.6 B pos/Rub imm Genetics consult with LUIS ARMANDO. 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 Not completed FAS :EFW 84.9% 3VC CL 5.95 FAS wnl Tdap given Influenza 02/08/2020 Glucola 144; 3H wnl GBS negative HSV: Needs valacyclovir at 36 weeks- has been taking Breast pump: given Mode of delivery: Anticipate . Planning on delivery at [facility] Orders: 0502F - SUBSEQUENT VISIT (CPT-0502F) Past Medical History: Thyroid cancer. Asthma Hypothyroidism Past Surgical History: Thyroidectomy with radioactive iodine treatment. Lumpectomy behind ear at age 16. Breast biopsy in 2014. oral surgery (1993) lump removed behind ear (1995) thyroidectomy (2004) Meds/Allgy - Allergies Allergies/Adverse Reactions: Allergies Allergy/AdvReac Type Severity Reaction Status Date / Time Sulfa (Sulfonamide Allergy Unknown Verified 10/09/20 19:09 Antibiotics) Review of Systems - Other Findings Other Findings: As per HPI, otherwise remaining systems are negative. Physical - Abdominal Exam Vital Signs: Temp Pulse Resp BP Pulse Ox 98.1 F 95 20 128/84 H 10/09/20 18:16 10/09/20 18:16 10/09/20 18:16 10/09/20 18:16 Contraction Frequency (min/apart): quiet - Monitoring Heart Rate Baseline: 140 mod star 15x15 accels no decels Strip Review: positive: Category I - Presentation Presentation: positive: Vertex - Vaginal Exam Membranes: positive: Membranes intact Dilation (in cm): 2 Effacement (%): 60 Station: positive: -2 Cervical Position: positive: Posterior - Speculum Exam Speculum Exam Performed: positive: No - Other Notes Labor Progress Note/Additional Text: GEN: NAD HEAD: NCAT EYES: No scleral icterus or conjunctival injection NECK: No cervical LAD or TM CV: RR RESP: normal effort ABD: gravid, S&NT/ND PSYCH: appropriate affect NEURO: alert and oriented, normal gait and coordination EXT: WWP VULVA: Normal external female genitalia. Normal Bartholin's, Parker Strip's, urethra meatus and anus. No inguinal lymphadenopathy. VAGINA: Speculum exam reveals normal vaginal mucosa, pink, moist, rugated. Physiologic discharge and no lesions or abnormal discharge. Vertex by BSUS Plan for Labor - Plan For Labor Plan for Labor: 40 yo at 39+2 wga here for IOL with cervical ripening IOL: Unfavorable cervix -Will start with misoprostol 50 mcg BC Q4H for up to 6 doses -Driver ballon as indicated -Pitocin when favorable -AROM as indicated -Consents obtained ANEMIA: Resolving with HCT 34.6 -T&C for 2 units to have available at delivery -PPH medications at bedside for delivery HX of THYROID CANCER: Continue levothyrocine 88 ncg po daily HX of HSV: Cont valacyclovir 1000 mg po daily PAIN: Desires epidural -Fentanyl 50 mcg IV Q1H for up to 4 doses and not to be given after 7 cm -Nitrous oxide as desired FWB: vertex, well grown, GBS neg, Cat I tracing -cEFM Anticipate Admitted to observation for cervical ripening. Transition to in-patient care with onset of active labor, rupture of membranes, start of pitocin, or placement of epidural.
[2020-10-09] MEDS ORDERED: LACTATED RINGERS 1,000 ML IV SCH (20:00)
[2020-10-09] MEDS ORDERED: TERBUTALINE 1 MG/ML VIAL SUBQ SCH (20:00)
[2020-10-09] MEDS ORDERED: OXYTOCIN/SODIUM CHLORIDE 500 ML IV SCH (20:00)
[2020-10-09] MEDS: miSOPROStoL 100 MCG TABLET BC SCH (20:10)
[2020-10-09] MEDS ORDERED: LEVOTHYROXINE 88 MCG TABLET PO SCH (21:00)
[2020-10-10] MEDS: miSOPROStoL 100 MCG TABLET BC SCH (00:10)
[2020-10-10] MEDS ORDERED: SODIUM CHLORIDE FLUSH 0.9% 10 ML SYRINGE IVP SCH (01:00)
[2020-10-10] MEDS ORDERED: ROPIVACAINE 0.2% 200 MG/100 ML BAG EP ONE (05:30)
[2020-10-10] MEDS ORDERED: ONDANSETRON 4 MG/2 ML VIAL IVP PRN (05:55)
[2020-10-10] MEDS ORDERED: METOCLOPRAMIDE 10 MG/2 ML VIAL IVP PRN (05:55)
[2020-10-10] MEDS ORDERED: NALBUPHINE 10 MG/ML AMP IVP PRN (05:55)
[2020-10-10] MEDS ORDERED: ROPIVACAINE 0.2% 200 MG/100 ML BAG EP PRN (05:55)
[2020-10-10] MEDS ORDERED: diphenhydrAMINE INJ 50 MG/ML VIAL IVP PRN (05:55)
[2020-10-10] MEDS ORDERED: NALOXONE 0.4 MG/ML VIAL IVP PRN (05:55)
--- NOTE | 2020-10-10 05:59 | ANESTHESIA ---
Pre-Anesthesia VS, & Labs - Diagnosis term labor, IUP - Procedure epidural for Vital Signs: Temp Pulse Resp BP Pulse Ox 36.7 C 95 20 128/84 H 10/09/20 18:16 10/09/20 18:16 10/09/20 18:16 10/09/20 18:16 Height: 5 ft 11 in Weight (kg): 107.955 kg Body Mass Index: 33.2 BMI Classification: Obese - NPO Last Fluid Intake: t/o noc Last Food Intake: full dinner - Is Patient ?: Yes - Lab Results Current Lab Results: Laboratory Tests 10/09/20 18:45: Blood Type B POSITIVE, Antibody Screen NEGATIVE, Crossmatch IS Only See Detail 10/09/20 18:45: WBC 8.1, RBC 4.11 L, Hgb 12.0, Hct 34.6 L, MCV 84.2, MCH 29.2, MCHC 34.7, RDW 13.9, Plt Count 218, MPV 10.6, Neut # (Auto) 6.3, Lymph # (Auto) 1.1 L, [place] # (Auto) 0.6, Eos # (Auto) 0.1, Baso # (Auto) 0.0, Absolute Nucleated RBC 0.00, Nucleated RBC % 0.0 Lab results reviewed: Yes Fish Bones: 10/09/20 18:45 Home Medications and Allergies Home Medications: Ambulatory Orders Calcium Carbonate [Tums (Calcium Carbonate 500mg)] 1 tab PO PRN PRN 10/10/20 Cholecalciferol [Vitamin D3] 5,000 unit PO DAILY 10/10/20 Levothyroxine Sodium [Levothyroxine] 274 mcg PO DAILY 10/10/20 Valacyclovir HCl [Valtrex] 1,000 mg PO DAILY 10/10/20 Active Medications Acetaminophen (Acetaminophen 325 Mg Tablet) 650 mg PO Q6H PRN PRN Reason: Pain or Fever Carboprost Tromethamine (Carboprost Tromethamine 250 Mcg/Ml Amp) 250 mcg IM Q15M PRN PRN Reason: Step 4: Hemorrhage protocol Stop: 10/14/20 19:11 Diphenhydramine HCl (Diphenhydramine Inj 50 Mg/Ml Vial) 12.5 - 25 mg IVP Q6HR PRN PRN Reason: ITCHING Fentanyl (Fentanyl 100 Mcg/2 Ml Vial) 50 mcg IVP Q1H PRN PRN Reason: PAIN Hydralazine HCl (Hydralazine Inj 20 Mg/Ml Vial) 5 - 20 mg IVP Q20M PRN; Protocol PRN Reason: SBP >160 or DBP >110 Hydralazine HCl (Hydralazine Inj 20 Mg/Ml Vial) 10 mg IVP .ONCE PRN; Protocol PRN Reason: Step 9 of Labetalol protocol Stop: 10/14/20 19:13 Oxytocin/Sodium Chloride (Pitocin/Sodium Chloride) 500 mls @ 999 mls/hr IV PRN PRN; Protocol PRN Reason: POST- HEMORR PREVENTION Stop: 10/14/20 19:11 Tranexamic Acid (Tranexamic 1,000 Mg/100ml-Nacl) 1,000 mg in 100 mls @ 600 mls/ hr IV .ONCE PRN PRN Reason: EBL >1200mL and within 3hr Stop: 10/14/20 19:11 Oxytocin/Sodium Chloride (Pitocin/Sodium Chloride) 500 mls @ 1 mls/hr IV TITR [place]; Protocol Lactated Ringer's (Lr) 1,000 mls @ 150 mls/hr IV .Q6H40M [place] Labetalol HCl (Labetalol 20 Mg/4 Ml Syringe) 20 - 80 mg IVP Q10M PRN; Protocol PRN Reason: SBP >160 or DBP >110 Labetalol HCl (Labetalol 20 Mg/4 Ml Syringe) 20 mg IVP .ONCE PRN; Protocol PRN Reason: Step 9 of nifedipine protocol Stop: 10/14/20 19:13 Labetalol HCl (Labetalol 20 Mg/4 Ml Syringe) 40 mg IVP .ONCE PRN; Protocol PRN Reason: Step 9 of hydrALAZine protocol Stop: 10/14/20 19:13 Levothyroxine Sodium (Levothyroxine 88 Mcg Tablet) 88 mcg PO BID [place] Lidocaine HCl (Lidocaine-Mpf 1% 30 Ml Vial) 30 ml ID .ONCE PRN PRN Reason: PERINEAL REPAIR Stop: 10/14/20 19:11 Methylergonovine Maleate (Methylergonovine 0.2 Mg/Ml Vial) 0.2 mg IM .ONCE PRN PRN Reason: Step 2: Hemorrhage protocol Stop: 10/14/20 19:11 Metoclopramide HCl (Metoclopramide 10 Mg/2 Ml Vial) 10 mg IVP Q6H PRN PRN Reason: Nausea / Vomiting Metoclopramide HCl (Metoclopramide 10 Mg Tablet) 10 mg PO Q6H PRN PRN Reason: Nausea / Vomiting Metoclopramide HCl (Metoclopramide 10 Mg/2 Ml Vial) 10 mg IVP Q6HR PRN PRN Reason: Nausea / Vomiting Misoprostol (Misoprostol 200 Mcg Tablet) 800 mcg BC .ONCE PRN PRN Reason: Step 3: Hemorrhage protocol Stop: 10/14/20 19:11 Misoprostol (Misoprostol 100 Mcg Tablet) 50 mcg BC Q4HR SC[place] Last Admin: 10/10/20 00:10 Dose: 50 mcg Documented by: Naloxone HCl (Naloxone 0.4 Mg/Ml Vial) 0.1 mg IVP Q2M PRN PRN Reason: RR<8 Nifedipine (Nifedipine 10 Mg Capsule) 10 - 20 mg PO Q20M PRN; Protocol PRN Reason: SBP >160 or DBP >110 Ondansetron HCl (Ondansetron 4 Mg/2 Ml Vial) 4 mg IVP Q4HR PRN PRN Reason: Nausea / Vomiting Ondansetron HCl (Ondansetron Odt 4 Mg Tablet) 4 mg TL Q4HR PRN PRN Reason: Nausea / Vomiting Ondansetron HCl (Ondansetron 4 Mg/2 Ml Vial) 4 mg IVP Q6HR PRN PRN Reason: Nausea / Vomiting Oxytocin (Oxytocin 10 Unit/Ml Vial) 10 unit IM .ONCE PRN PRN Reason: Step one: If no IV access Stop: 10/14/20 19:11 Sodium Chloride (Sodium Chloride Flush 0.9% 10 Ml Syringe) 10 ml IVP PRN PRN PRN Reason: NEEDED PER PROVIDER ORDERS Sodium Chloride (Sodium Chloride Flush 0.9% 10 Ml Syringe) 10 ml IVP 0100,0900,1700 [facility] Terbutaline Sulfate (Terbutaline 1 Mg/Ml Vial) 0.25 mg SUBQ Q1H [place] Valacyclovir HCl (Valacyclovir 500 Mg Tablet) 1,000 mg PO DAILY [place] Calcium Carbonate [Tums (Calcium Carbonate 500mg)] 1 tab PO PRN PRN 10/10/20 Cholecalciferol [Vitamin D3] 5,000 unit PO DAILY 10/10/20 Levothyroxine Sodium [Levothyroxine] 274 mcg PO DAILY 10/10/20 Valacyclovir HCl [Valtrex] 1,000 mg PO DAILY 10/10/20 Allergies/Adverse Reactions: Allergies Allergy/AdvReac Type Severity Reaction Status Date / Time Sulfa (Sulfonamide Allergy Unknown Verified 10/09/20 19:09 Antibiotics) Anes History & Medical History - Anesthetic History Anesthesia Complications: reports: No previous complications Family history of Anesthesia Complications: Denies Family history of Malignant Hyperthermia: Denies - Medical History Endocrine/Autoimmune: reports: HyPOthyroidism Smoking Status: Former smoker - Surgical History Other Past Surgical History: total thyroidectomy Exam General: Alert, Oriented x3, Cooperative Dental: WNL Mouth Openin Fingerbreadth Neck Mobility: Normal Mallampati classification: II Thyromental Distance: 4-6 cm Respiratory: No respiratory distress Cardiovascular: Regular rate Mental/Cognitive Status: Alert/Oriented X3, Normal for patient Cognitive Status: Within normal limits Plan Anesthesia Type: Epidural Consent for Procedure(s) Verified and Reviewed: Yes Code Status: Attempt Resuscitation ASA classification: 2-Mild systemic disease Is this case an emergency?: No
[2020-10-10] MEDS: OXYTOCIN/SODIUM CHLORIDE 500 ML IV PRN ×2 (06:27→07:05)
[2020-10-10] MEDS ORDERED: SIMETHICONE CHEW 80 MG TABLET PO PRN (07:58)
[2020-10-10] MEDS ORDERED: HYDROCORTISONE 1% CREAM 28 GM TUBE PR PRN (07:58)
[2020-10-10] MEDS ORDERED: LACTATED RINGERS 1,000 ML IV SCH (08:00)
[2020-10-10] MEDS ORDERED: valACYclovir 500 MG TABLET PO SCH (09:00)
[2020-10-10] MEDS: ACETAMINOPHEN 500 MG TABLET PO PRN ×2 (09:31→18:22)
[2020-10-10] MEDS: IBUPROFEN 600 MG TABLET PO PRN ×3 (09:32→22:26)
[2020-10-10] MEDS: LEVOTHYROXINE 25 MCG TABLET PO SCH (10:01)
[2020-10-10] MEDS: LEVOTHYROXINE 112 MCG TABLET PO SCH (10:02)
--- NOTE | 2020-10-10 16:22 | DELIVERY NOTE ---
Delivery Note - Infant Delivery Method Infant Delivery Method: positive: Spontaneous vaginal delivery - Cervical Ripening Method Cervical Ripening Method: positive: Misoprostil - Presentation Presentation: positive: Vertex - Nuchal Cord Nuchal Cord: positive: Present - Anesthetic Anesthetic Type: Anesthetic: positive: Lidocaine - 1% plain - Amniotic Fluid Description Amniotic Fluid Description: positive: Clear - Episiotomy Type Episiotomy Type: positive: None - Laceration Laceration: positive: 2nd degree, Perineal - Suture Suture Type: positive: Vicryl Suture Size: positive: 3-0 - Delivery Outcome Delivery Outcome: positive: Livebirth - [place]: positive: Placed in direct skin contact with mother, Stimulated, Warmed [place] sex: positive: Female - Cord Cord: positive: 3 vessels - Placenta Placenta: positive: Intact, Expressed - Estimated Blood Loss Estimated Blood Loss (in cc): 500 - Post Delivery Events Post Delivery Events: positive: Hemorrhage - Delivery Comments (Free Text/Narrative) Delivery Comments (Free Text/Narrative): Patient is a 40 yo admitted on 10/09/20 at 39+2 wga here for induction of labor for AMA. Seen in clinic on day of admission and SVE was 2/60/-2. She was confirmed to be vertex at presentation with bedside us. She was given misoprostol 50 mcg BC x2 for cervical ripening. She then progressed into active labor without further intervention. GBS negative. Spontaneous rupture of membranes at 4:51 am on 10/10/20 with passage of clear fluid. Epidural for pain management. Active labor documented at 2:15 am. Complete at 6:16 am on 10/10/20. Cat I tracing throughout Stage I labor. STAGE II: Patient pushed well for 4 minutes to deliver a viable female from vertex presentation. Weight 4390g and APgars were 8/9. Shoulders delivered without delay. delivered to maternal chest. Cord was clamped x2 and cut after pulsations had ceased. No nuchal cord. STAGE III: Placenta delivered with manual expression at 6:27 am. A second degree laceration was noted at the midline of the perineum. A total of 30 cc of 1% lidocaine was used to anesthetize the perineum and the laceration was repaired in the usual sterile fashion in layers using 3-0 Vicryl. Good hemostasis was noted. PPH noted with EBL of 500 cc; managed with pitoicin, misoprostol, and uterine massage.
[2020-10-11] MEDS: IBUPROFEN 600 MG TABLET PO PRN (05:23)
[2020-10-11] MEDS: LEVOTHYROXINE 112 MCG TABLET PO SCH (05:48)
[2020-10-11] MEDS: LEVOTHYROXINE 25 MCG TABLET PO SCH (05:50)
[2020-10-11 08:22] VITALS: BP 113/68
--- NOTE | 2020-10-11 09:37 | Discharge Plan ---
Discharge Plan Problem Reviewed?: Yes Disposition: Home, Self Care Condition: Good Prescriptions: Docusate Sodium 100Mg Capsule [Colace 100Mg Capsule] 100 - 200 mg PO BID PRN #60 cap PRN Reason: Constipation Ibuprofen [Motrin] 600 mg PO Q6H PRN #60 tab PRN Reason: Pain Diet: Regular Activity Restrictions: Additional Comments (Nothing in the vagina for 6 weeks: No intercourse, tampons, douching Call for: -Fever greater than 100.5 - Pain that does not improve with pain medication -Heavy bleeding in which you are soaking a pad an hour for 2 hours in a row No tub baths or hot tubs for 4 weeks) Shower Restrictions: No (no tub baths for 4 weeks) Driving Restrictions: No Weight Bearing: Full Weight Additional Instructions or Follow Up instructions: Ibuprofen 600 mg by mouth every 6 hours as needed for pain Acetaminophen 500-1000 mg by mouth every 8 hours as needed for pain Docusate 100-200 mg by mouth twice a day as needed for constipation No Smoking: If you smoke, Please STOP! Call for help. Follow-up with: Roslyn Carver ARNP [Primary Care Provider] - Sherley Cleveland MD [Provider Admit Priv/Credential] -
--- NOTE | 2020-10-11 11:10 | Labor Flowsheet ---
Labor Flowsheet Datetime Report Generated by CPN: 10/11/2020 11:10 Datetime: 10/11/2020 07:54 VITAL SIGNS NBP Sys/Karen/Mean (mmHg): 113 : 68 : 78 Pulse: 83 Datetime: 10/10/2020 07:55 Stage of : Recovery Datetime: 10/10/2020 06:49 MEDICATIONS Cervical Ripening Agents: Cytotec @ Datetime: 10/10/2020 06:22 Membranes Ruptured Date/Time: 10/10/2020 04:51 Datetime: 10/10/2020 06:20 UTERINE ACTIVITY Monitor Mode: Palpation Frequency (min): 1-2.5 Quality: Strong Duration (sec): 50-80 Pattern: Normal: <= 5 Contractions in 10 Minutes Resting Tone (Palpate): Relaxed ASSESSMENT A Monitor Mode: Telemetry FHR Baseline Rate : 135 Variability: Moderate 6-25 bpm Accelerations: None Decelerations: None Category: Category I Datetime: 10/10/2020 06:19 SpO2 (%): 100 Datetime: 10/10/2020 06:16 VAGINAL EXAM Dilatation (cm): 10.0 Effacement (%): 100 Station: 2 Exam by: Megha MD COMMUNICATION Communication: Provider at Bedside Datetime: 10/10/2020 06:10 PAIN Pain Scale: 8 Pain Presence: Constant Pain Type: Pressure Pain Location: Perineum Pain Assessment Comments: pt c/o unrelenting urge to push, other RN informed of need for MD at beds baljeet, this RN remains at coaching pt on breathing through ctxs Vaginal Bleeding: Normal Show Hygiene: Alyssa Care Datetime: 10/10/2020 06:04 Monitor Interventions for FHR: Ultrasound Adjusted PATIENT CARE Patient Position/Activity: Left Extreme Datetime: 10/10/2020 06:01 Cervix, Consistency: Soft Cervix, Position: Posterior Datetime: 10/10/2020 06:00 FHR Baseline Changes: No Baseline Change Datetime: 10/10/2020 05:39 ANESTHESIA Epidural Procedure: Test Dose Datetime: 10/10/2020 05:16 Pain Relief Measures: Comfort Measures Comfort Measures: Breathing/Relaxation; Coaching Datetime: 10/10/2020 05:11 I/O Interventions: Up to BR Datetime: 10/10/2020 05:05 Provider Notified (Name): Megha MD Notification Reason: Status Update Datetime: 10/10/2020 04:58 Pain Coping: Requesting Pain Medication or Epidural Communication Comments: CHEMICAL ANALYTICAL SAMPLER called, states on his way Datetime: 10/10/2020 04:51 Membrane Status: Ruptured Membranes Rupture Method: Spontaneous Amniotic Fluid Color: Clear Amniotic Fluid Amount: Moderate Amniotic Fluid Odor: Normal Datetime: 10/10/2020 04:47 Respirations: 20 Temperature (C): 36.7 Patient Care Comments: pt assisted back into bed and a dry gown Datetime: 10/10/2020 04:30 Comments: minimal to moderate variability Datetime: 10/10/2020 04:08 TEACHING Instructional Method: Verbal; Patient Instructed; Verbalized Understanding Teaching Comments: pt instructed to call RN immediately if water breaks, bright red vaginal bleedin g, or urge to push/pressure in rectum experienced Datetime: 10/10/2020 02:00 Contraction Comments: occasional Datetime: 10/10/2020 01:55 Pain Management: IV Narcotics; PRN Medications; Pain Scale/Goals; Comfort Measures Datetime: 10/09/2020 21:51 Monitor Interventions for UA: [place] Adjusted Datetime: 10/09/2020 19:32 Plan of Care: Plan of Care Discussed; Induction Unit Routine: [place] to Room; Call Garcia; Bed; Unit Personnel; Monitoring; Safety/Fall Risk Pr evention; Diet/Nutrition Services Labor/Induction: Labor Stages; Cervical Ripening; Induction
--- NOTE | 2020-10-27 08:27 | DISCHARGE SUMMARY ---
Discharge Summary Admit Date: 10/09/20 Discharge Date: 10/11/20 Discharging Provider: Megha Condition at Discharge: Good Discharge Disposition: 01 Home, Self Care - DIAGNOSES Admission Diagnoses: IUP at 39+2 wga Advanced maternal age Hx of thyroid cancer Vitamin D deficiency Hx of PPH Discharge Diagnoses with Status of Each Condition: Same and delivery of term gestation - HPI History of Present Illness: Patient is a 40 yo admitted at 39+2 wga for induction of labor for AMA. Seen in clinic prior to admit. SVE was /-2. complicated by hx of thyroid cancer on levothyroxine. Anemia s/p iron infusion with most recent HCT 34.6. 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 Endorses FM. Small amount of VB after membrane stripping. No LOF. Reviewed process and signed consents in clinic today. Hx of retained placenta with PPH after last delivery; was not transfused. Placenta in opposite location. Care: DATING: LMP unknown US on 02/20/2020 at 6w1d gives DEBRA 10/15/19. Thyroid CA: History of thyroid cancer, status post thyroidectomy, on levothyroxine - see prior notes about period of instability Now well controlled [facility]O adjusted levothyroxine to 275 mcg QOD alternating with 137 QOD. NO change since last visit ENDO states no further fu necessary No change in meds Vit D Deficiency: Last level 14. On supplementation. She is unclear on dose as pharmacy would not fill RX Reviewed drop to 12 on fu labs Reviewed RBA of higher level dosing. Patient agrees with higher dose and Rx submitted Repeat levels 26 Anemia: HCT 31 at 28 weeks Unchanges on repeat check after oral supplementation Iron infusion completed two weeks ago FU CBC 34.6 B pos/Rub imm Genetics consult with LUIS ARMANDO. 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 Not completed FAS :EFW 84.9% 3VC CL 5.95 FAS wnl Tdap given Influenza 02/08/2020 Glucola 144; 3H wnl GBS negative HSV: Needs valacyclovir at 36 weeks- has been taking - HOSPITAL COURSE Hospital Course: Patient is a 40 yo admitted on 10/09/20 at 39+2 wga for induction of labor for AMA. Seen in clinic on day of admission and SVE was /-2. She was confirmed to be vertex at presentation with bedside us. She was given misoprostol 50 mcg BC x2 for cervical ripening. She then progressed into active labor without further intervention. GBS negative. Spontaneous rupture of membranes at 4:51 am on with passage of clear fluid. Epidural for pain management. Active labor documented at 2:15 am. Complete at 6:16 am on 10/10/20. Cat I tracing throughout Stage I labor. STAGE II: Patient pushed well for 4 minutes to deliver a viable female infant from vertex presentation. Weight 4390g and APgars were 8/9. Shoulders delivered without delay. Infant delivered to maternal chest. Cord was clamped x2 and cut after pulsations had ceased. No nuchal cord. STAGE III: Placenta delivered with manual expression at 6:27 am. A second degree laceration was noted at the midline of the perineum. A total of 30 cc of 1% lidocaine was used to anesthetize the perineum and the laceration was repaired in the usual sterile fashion in layers using 3-0 Vicryl. Good hemostasis was noted. PPH noted with EBL of 500 cc; managed with pitoicin, misoprostol, and uterine massage. course was uncomplicated. Meeting goals for discharge on PPD#1. Routine discharge instructions given. Rh postive/Rubella immune - ALLERGIES Allergies/Adverse Reactions: Allergies Allergy/AdvReac Type Severity Reaction Status Date / Time Sulfa (Sulfonamide Allergy Unknown Verified 10/09/20 19:09 Antibiotics) - MEDICATIONS Home Medications: Ambulatory Orders Medication Instructions Recorded Confirmed Calcium Carbonate [Tums (Calcium 1 tab PO PRN PRN 10/10/20 10/10/20 Carbonate 500mg)] Cholecalciferol [Vitamin D3] 5,000 unit PO DAILY 10/10/20 10/10/20 Levothyroxine Sodium 274 mcg PO DAILY 10/10/20 10/10/20 [Levothyroxine] Valacyclovir HCl [Valtrex] 1,000 mg PO DAILY 10/10/20 10/10/20 Docusate Sodium 100Mg Capsule 100 - 200 mg PO BID PRN #60 cap 10/11/20 [Colace 100Mg Capsule] Ibuprofen [Motrin] 600 mg PO Q6H PRN #60 tab 10/11/20 - PHYSICAL EXAM AT DISCHARGE General Appearance: positive: No acute distress Neck: positive: Nml inspection Respiratory: positive: No respiratory distress, Breath sounds nml Cardiovascular: positive: Regular rate & rhythm Peripheral Pulses: positive: 2+ Abdomen: positive: Other (soft and non-tender, ND. FF below umbi) Skin: positive: Color nml Extremities: positive: Non-tender Neurologic/Psychiatric: positive: Oriented x3 - LABS Result Diagrams: 10/09/20 18:45 - FOLLOW UP Follow Up: [address] Cleveland - TIME SPENT Time Spent in Discharge (Minutes): 30
--- NOTE | 2020-10-27 08:33 | PROVIDER PROGRESS NOTE ---
Subjective - Prog Note Date Prog Note Date: 10/11/20 Prog Note Time: 11:30 - Subjective Subjective: Doing well.Patient is up and ambulating, tolerating po, and voiding. Pain is well managed with pain medications. Objective - Vital Signs/Intake & Output Reviewed Vital Signs: Yes Vital Signs: 98.1 83 113/68 17 98 - Objective General Appearance: positive: No acute distress Respiratory: positive: No respiratory distress, Breath sounds nml Cardiovascular: positive: Regular rate & rhythm Peripheral Pulses: 2+ Radial (R), 2+ Radial (L), 2+ Dorsalis pedis (R), 2+ Dorsalis pedis (L) Abdomen: positive: Other (S&NT/ND. FF below umbi) Skin: positive: Color nml, Warm, Dry Extremities: positive: Non-tender - Lab Results Fish Bones: 10/09/20 18:45 Assessment/Plan - Problem List (1) Vaginal delivery Impression: PPD#1 s/p Doing well Meeting goals for DC Routine DC instructions given Rh pos/Rub imm FU in one week
== END 2020-10-11 11:00 | disposition home or self-care (01) | DRG 806 ==
LOC: WFO 18:13 → FBP 18:15 → WFO 19:09 → FBP 19:10 → OBSVTOIN 10-10 07:23
PROVIDERS: ADMIT Obstetrics & Gynecology; ATTEND Obstetrics & Gynecology
PROC: 10E0XZZ Delivery of Products of Conception, External Approach (ICD-10-PCS; principal; 2020-10-10)
PROC: 0KQM0ZZ Repair Perineum Muscle, Open Approach (ICD-10-PCS; 2020-10-10)
DX: O99.02 Anemia complicating childbirth (principal); O98.513 Other viral diseases complicating pregnancy, third trimester; Z37.0 Single live birth; O72.0 Third-stage hemorrhage; B00.9 Herpesviral infection, unspecified; O34.43 Maternal care for other abnormalities of cervix, third trimester; O62.2 Other uterine inertia; O70.1 Second degree perineal laceration during delivery; D64.9 Anemia, unspecified; O99.284 Endocrine, nutritional and metabolic diseases complicating childbirth; E89.0 Postprocedural hypothyroidism; E55.9 Vitamin D deficiency, unspecified; Z3A.39 39 weeks gestation of pregnancy; Z14.1 Cystic fibrosis carrier; Z85.850 Personal history of malignant neoplasm of thyroid; Z87.891 Personal history of nicotine dependence; Z79.899 Other long term (current) drug therapy
CPT/HCPCS: 36415; 85025; 86850; 86900; 86901; 86920; 96365; A9270; G0378; J7120

== ENCOUNTER 2020-11-09 15:50 | Outpatient (CLI) | payer BC ==
[2020-11-09 20:25] LABS: THYROID STIMULATING HORMONE < 0.08 uIU/mL (0.34-5.60)
[2020-11-09 20:27] LABS: FREE T4 (FREE THYROXINE) 1.64 ng/dL (0.58-1.64)
== END 2020-11-09 15:51 | disposition home or self-care (01) ==
LOC: LAB.S 15:50
PROVIDERS: ATTEND Internal Medicine
DX: E89.0 Postprocedural hypothyroidism (principal)
CPT/HCPCS: 36415; 84439; 84443

== ENCOUNTER 2021-02-17 12:21 | Outpatient (CLI) | payer BC ==
[2021-02-17 16:50] LABS: THYROID STIMULATING HORMONE < 0.08 uIU/mL (0.34-5.60)
[2021-02-17 16:52] LABS: FREE T4 (FREE THYROXINE) 1.25 ng/dL (0.58-1.64)
== END 2021-02-17 12:22 | disposition home or self-care (01) ==
LOC: LAB.S 12:21
PROVIDERS: ATTEND Internal Medicine
DX: E89.0 Postprocedural hypothyroidism (principal)
CPT/HCPCS: 36415; 84439; 84443

== ENCOUNTER 2022-09-05 11:02 | Outpatient (CLI) | payer BC ==
[2022-09-05 14:53] LABS: CALCIUM 9.2 mg/dL (8.5-10.3); CREATININE 0.7 mg/dL (0.4-1.0); POTASSIUM 4.1 mmol/L (3.5-5.0)
[2022-09-05 15:00] LABS: THYROID STIMULATING HORMONE 2.78 uIU/mL (0.34-5.60)
[2022-09-05 15:02] LABS: FREE T3 3.32 pg/mL (2.5-3.9); FREE T4 (FREE THYROXINE) 0.95 ng/dL (0.58-1.64)
[2022-09-06 19:07] LABS: THYROGLOBULIN ANTIBODY <1.0 IU/mL (0.0-0.9); THYROID PEROXIDASE (TPO) AB <9 IU/mL (0-34)
== END 2022-09-05 11:03 | disposition home or self-care (01) ==
LOC: LAB.S 11:02
PROVIDERS: ATTEND Internal Medicine
DX: E89.0 Postprocedural hypothyroidism (principal); Z85.850 Personal history of malignant neoplasm of thyroid
CPT/HCPCS: 36415; 80048; 84439; 84443; 84481; 86376; 86800

== ENCOUNTER 2023-09-05 14:07 | Outpatient (CLI) | payer BC ==
[2023-09-05 21:08] LABS: THYROID STIMULATING HORMONE 1.36 uIU/mL (0.34-5.60)
== END 2023-09-05 14:08 | disposition home or self-care (01) ==
LOC: LAB.S 14:07
PROVIDERS: ATTEND Internal Medicine
DX: C73 Malignant neoplasm of thyroid gland (principal)
CPT/HCPCS: 36415; 84439; 84443; 84481; 86800